=== PATIENT | female | born 1960 | race Two or more races ===

== ENCOUNTER 2024-07-16 19:44 | Emergency (ER) | payer MEDICAID, OTHER ==
[~2024-07-16] VITALS: Ht 154.9 cm; Wt 50.0 kg
--- NOTE | 2024-07-16 20:02 | ED.PDOC ---
HPI (NEURO) HPI Comments 64-year-old female with PMHx Seizure, HTN, HLD presents with a chief complaint of seizure acitivity. Per EMS, patient lives at a board and care facility and had a witnessed tonic clonic seizure. EMS was called and patient had an additional seizure in their presence. Per EMS, they gave 5mg Versed IM. However, patient had an additional seizure in the EMS ambulance and they gave any additional Versed 2.5mg IV. Patient is alert, but not oriented, not tracking or following simple commands. Patients baseline mentation is unknown. No other symptoms or modifying factors present at this time. Time Seen by MD: 19:49 Reviewed Notes: Medications, Allergies Information Source: Emergency Med Personnel Mode of Arrival: EMS Severity: Moderate Dizziness/Weakness Severity: Other (UNKNOWN) Headache Severity: Other (UNKNOWN) Timing: Hours Duration: Since onset Prehospital treatment: Oxygen, Treatment (VERSED IM AND IV) Seizure Quality: Tonic-clonic Seizure Location: Generalized Onset: With light exertion Circumstances: Spontaneous History of: Seizure Disorder Vital Signs Vital Signs Date Time Temp Pulse Resp B/P (MAP) Pulse Ox O2 Delivery O2 Flow Rate FiO2 07/17/24 01:12 97.9 86 13 134/63 (86) 95 97.9 07/16/24 20:20 Non-Rebreather 15 N/A Physical Exam General: Awake, no acute distress Skin: Skin in warm, dry and intact. Appropriate color for ethnicity. Nailbeds pink with no cyanosis. HEENT: The head is normocephalic and atraumatic. Conjunctivae are clear without exudates or hemorrhage. Sclera is non-icteric. Eyes deviated to right with nystagmus. . Eyelids are normal in appearance without swelling or lesions. Oral mucosa is pink and moist Neck: The neck is supple with normal range of motion. No JVD. Cardiac: Heart rate and rhythm are normal. No murmurs, gallops, or rubs are auscultated. Respiratory: No signs of respiratory distress. Lung sounds are clear in all lobes bilaterally without rales, ronchi, or wheezes. Abdominal: Abdomen is soft, non-tender without distention. Bowel sounds are present and normoactive in all four quadrants. Extremities: Upper and lower extremities are atraumatic in appearance without deformity or edema. Neurological: Patient is lethargic, does not follow commands, does respond to and localizes to pain, Babinski positive Review of Systems: Unable to obtain ROS, patient is not responding to questions, not speaking. Past Medical History PAST MEDICAL HISTORY: High Lipids, HTN, Seizures Surgical History: Unknown ZYGLO INSPECTOR History: Denies all ZYGLO INSPECTOR Hx Family History Family History: Reviewed,noncontributory to illness Social History Smoker: Non-Smoker Alcohol: Denies ETOH Use Drugs: Denies Drug Use Lives In: Home EKG EKG : Pulse Rate (adult): 92 [place]: Normal Cardiac Rhythm: NSR Block: None Hypertrophy: None ST: Normal Comments Probable Left Atrial Enlargement Was a procedure done? Was a procedure done?: No X-Ray, Labs, Meds, VS Vital Signs Date Time Temp Pulse Resp B/P (MAP) Pulse Ox O2 Delivery O2 Flow Rate FiO2 07/17/24 01:12 97.9 86 13 134/63 (86) 95 97.9 07/17/24 00:00 106 13 152/93 (112) 95 07/16/24 23:00 101 10 172/92 (118) 99 07/16/24 22:00 106 14 156/102 (120) 98 07/16/24 20:20 Non-Rebreather 15 N/A 07/16/24 20:20 97.7 90 12 160/84 (109) 100 97.7 07/16/24 20:02 92 07/16/24 19:57 98.0 94 23 156/86 (109) 98 07/16/24 19:49 92 Lab Test 07/16/24 20:22 Range/Units White Blood Count 12.4 H 4.4-10.8 10^3/uL Red Blood Count 4.12 4.0-5.20 10^6/uL Hemoglobin 14.3 12.2-16.2 g/dL Hematocrit 43.2 36.0-46.0 % Mean Corpuscular Volume 104.6 H 80.0-100.0 fL Mean Corpuscular Hemoglobin 34.7 H 28.0-32.0 pg Mean Corpuscular Hemoglobin Concent 33.1 32.0-36.0 g/dL Red Cell Distribution Width 13.4 11.8-14.3 % Platelet Count 136 L 140-450 10^3/uL Mean Platelet Volume 9.7 6.9-10.8 fL Neutrophils (%) (Auto) 88.0 H 37.0-80.0 % Lymphocytes (%) (Auto) 6.1 L 10.0-50.0 % Monocytes (%) (Auto) 5.7 0.0-12.0 % Eosinophils (%) (Auto) 0.0 0.0-7.0 % Basophils (%) (Auto) 0.2 0.0-2.0 % Neutrophils # (Auto) 10.9 H 1.6-8.6 10 ^3/uL Lymphocytes # (Auto) 0.8 0.4-5.4 10 ^3/uL Monocytes # (Auto) 0.7 0-1.3 10 ^3/uL Eosinophils # (Auto) 0 0-0.8 10 ^3/uL Basophils # (Auto) 0 0-0.2 10 ^3/uL Nucleated Red Blood Cells 0.2 % Sodium Level 137 136-145 mmol/L Potassium Level 3.4 L 3.5-5.1 mmol/L Chloride Level 101 98-107 mmol/L Carbon Dioxide Level 18 L 20-31 mmol/L Anion Gap 18 H 5-15 Blood Urea Nitrogen 8 L 9-23 mg/dL Creatinine 0.90 0.550-1.02 mg/dL Glomerular Filtration Rate Calc 72 >90 mL/min BUN/Creatinine Ratio 8.9 L 10.0-20.0 Serum Glucose 125 H 74-106 mg/dL Calcium Level 10.2 8.7-10.4 mg/dL Total Bilirubin 0.4 0.2-1.0 mg/dL Aspartate Amino Transferase (AST) 31 13-40 U/L Alanine Aminotransferase (ALT) 26 7-40 U/L Alkaline Phosphatase 85 46-116 U/L Troponin I High Sensitivity 17 </=34 ng/L Total Protein 7.7 5.7-8.2 g/dL Albumin 4.8 3.2-4.8 g/dL Phenytoin (Dilantin) Level < 2.0 L 10-20 ug/mL Levetiracetam Level Pending Current Medications Medications (Trade) Dose Ordered Sig/Jesu Route Start Time Stop Time Status Last Admin Sodium Chloride 1,000 ml @ 1,000 mls/hr Q1H ONCE IV 07/16/24 20:00 07/16/24 20:59 DC 07/16/24 20:52 Levetiracetam 100 ml @ 400 mls/hr ONCE ONCE IV 07/16/24 20:00 07/16/24 20:14 DC 07/16/24 20:25 Lorazepam (Ativan Inj) 2 mg ONCE ONCE IV 07/16/24 20:00 07/16/24 20:01 DC 07/16/24 20:25 Potassium Chloride 100 ml @ 50 mls/hr ONCE ONCE IV 07/16/24 22:00 07/16/24 23:59 DC 07/16/24 22:16 Levetiracetam 100 ml @ 400 mls/hr ONCE ONCE IV 07/16/24 22:30 07/16/24 22:44 DC 07/16/24 22:50 Levetiracetam 100 ml @ 400 mls/hr ONCE ONCE IV 07/16/24 22:30 07/16/24 22:44 DC 07/17/24 00:08 Time of 1ST Reevaluation: 20:19 Reevaluation 1ST: Unchanged Patient Education/Counseling: Diagnosis, Treatment, Prognosis Family Education/Counseling: No Family Present Medical Screening: No EMC Exist At This Time Departure 1 Departure Time of Disposition: 22:01 Impression: Primary Impression: Recurrent seizures Additional Impression: Hypokalemia Disposition: 02 SHORT TERM HOSPITAL Condition: Stable Comments 64-year-old female with recurrent seizures today. Three witnessed seizures prior to arrival. One seizure in the emergency department. Patient received Keppra, Ativan in the ED. CT head negative for acute process including ischemia. Patient admitted for further treatment, evaluation and monitoring, neurology consultation. Number & Complexity of Problems Addressed Acute or chronic illness that poses a threat to life or bodily function: Seizure disorder, Status epilepticus, hypokalemia Extensive evaluation was performed to identify or rule out: Acute CVA, status epilepticus, electrolyte disorder, drug intoxication, urinary tract infection, other Amount and/or Complexity of Data to be Reviewed/Analyzed Tests reviewed: See labs Documents reviewed: No previous records available for review Independent historian: EMS Independent interpretation of tests: EKG, CT head without contrast: Intracranial hemorrhage, no acute stroke Discussion of management or test interpretation with external physician/other qualified health rn acute care: Discussed with Dr. Smith, neurology at 10:20 p.m., recommendation is in additional 2 g of Keppra for a total of 60 milligram/kilogram loading dose, additional 3 mg of Ativan for total loading dose of 0.1 milligram/kilogram, transfer for continuous EEG. Discussed with Dr. Hunter at [facility] at 10/05/2041 who accepts patient for ED to ED transfer. Risk of Complications and/or Morbidity or Mortality of Patient Management Patient was at high risk of morbidity from additional diagnostic testing or treatment Decision regarding hospitalization or escalation of hospital level of care Parenteral controlled substances: IV lorazepam Critical Care Note Critical Care Time?: No Stability Stability form required: No I personally scribed for NOMI MOLINA MD ([email or web address]) on 07/16/24 at 20:02. Electronically submitted by Albino Leon ([email or web address]). NOMI MOLINA MD Jul 16, 2024 20:02
[2024-07-16] MEDS: LORazepam 2MG/ML-1ML VIAL ONE (20:09)
[2024-07-16] MEDS: LORazepam 2MG/ML-1ML VIAL IV ONE (20:25)
[2024-07-16] MEDS: levETIRAcetam 1000 mg/100ml 100 ML IV ONE ×2 (20:25→22:50)
[2024-07-16 20:35] LABS: Basophils # (auto) 0 10 ^3/uL (0-0.2); Basophils % (auto) 0.2 % (0.0-2.0); Eosinophils # (auto) 0 10 ^3/uL (0-0.8); Mean Corpuscular Hemoglobin 34.7 pg (28.0-32.0); Monocytes # (auto) 0.7 10 ^3/uL (0-1.3)
[2024-07-16 20:36] LABS: Hematocrit 43.2 % (36.0-46.0); Hemoglobin 14.3 g/dL (12.2-16.2); Lymphocytes # (auto) 0.8 10 ^3/uL (0.4-5.4); Lymphocytes % (auto) 6.1 % (10.0-50.0); Mean Corpuscular Hgb Conc. 33.1 g/dL (32.0-36.0); Mean Corpuscular Volume 104.6 fL (80.0-100.0); Monocytes % (auto) 5.7 % (0.0-12.0); Neutrophils # (auto) 10.9 10 ^3/uL (1.6-8.6); Nucleated Red Blood Cells % 0.2 %; Platelet Count (auto) 136 10^3/uL (140-450); Red Blood Cells 4.12 10^6/uL (4.0-5.20); Red Cell Distribution Width 13.4 % (11.8-14.3); White Blood Cell 12.4 10^3/uL (4.4-10.8)
[2024-07-16] MEDS: SODIUM CHLORIDE 0.9% 1,000 ML IV ONE (20:52)
[2024-07-16] MEDS ORDERED: LORazepam 2MG/ML-1ML VIAL IV PRN (21:00)
--- NOTE | 2024-07-16 21:15 | DVH ---
EXAM: CT HEAD WITHOUT CONTRAST INDICATION: seizure TECHNIQUE: CT of the head without intravenous contrast. Radiation Dose Information: CT Dose: CTDI volume is 50.06 mGy. Dose-length product is 802.63 mGy*cm The dose indicators for CT are the volume Computed Tomography (CT) Dose Index (CTDIvol) and the Dose Length Product (DLP), and are measured in units of mGy and mGy-cm, respectively. These indicators are not patient dose, but values generated from the CT scanner acquisition factors. The report includes radiation exposure data for exposures received during this examination. COMPARISON: None FINDINGS: There is no evidence of acute intracranial hemorrhage, extra-axial collection, mass effect, midline s hift, herniation or hydrocephalus. The ventricles, sulci and cisterns are age appropriate. The fleming-white differentiation is intact. Patchy periventricular and subcortical white matter hypoattenuation is nonspecific but may be related to small vessel ischemic disease. The visualized paranasal sinuses and mastoid air cells are clear. The surrounding soft tissues and osseous structures are unremarkable. IMPRESSION: 1. No acute intracranial hemorrhage. 2. No CT findings of territorial ischemia. 3. No intracranial masses.
[2024-07-16 21:18] LABS: Alanine Aminotransferase 26 U/L (7-40); Alkaline Phosphatase 85 U/L (46-116); Anion Gap 18 (5-15); Aspartate Aminotransferase 31 U/L (13-40); BUN/Creatinine Ratio 8.9 (10.0-20.0); Calcium 10.2 mg/dL (8.7-10.4); Chloride 101 mmol/L (98-107); Sodium 137 mmol/L (136-145)
[2024-07-16 21:19] LABS: Bilirubin, Total 0.4 mg/dL (0.2-1.0); Total Protein 7.7 g/dL (5.7-8.2)
[2024-07-16 21:20] LABS: Potassium 3.4 mmol/L (3.5-5.1)
[2024-07-16 21:21] LABS: Albumin 4.8 g/dL (3.2-4.8); Blood Urea Nitrogen 8 mg/dL (9-23); Carbon Dioxide 18 mmol/L (20-31); Glucose 125 mg/dL (74-106)
[2024-07-16] MEDS: POTASSIUM CHL 20MEQ/100ML 100 ML IV ONE (22:16)
--- NOTE | 2024-07-16 22:23 | BSKYNEURO ---
[facility] Note # Demographics Consult Type: General Neurology Patient Location: Emergency Room First Name: Shanna Last Name: Valerie Date of : 1960 Age: 64 Gender: Male Facility: [facility] Time of Initial Page ( Time): 07/16/2024, 22:13 Time of Return Call ( Time): 07/16/2024, 22:14 Phone Only Consult: 64F with seizures on levetiracetam and phenytoin presents after 3 seizures, not returned to baseline. Has eyes deviated to right; 4th seizure in the ED with GTC. Received 1g levetiracetam and 2mg lorazepam. Phone Agreement: - phone consult deemed mutually sufficient for patient care # Data Head CT: - no bleed - per radiologist read # Assessment Impression: Status epilepticus # Plan Medication: 3mg lorazepam for total 0.1 mg/kg dose 2g levetiracetam for total 60 mg/kg dose Other: - If patient has any neurological deterioration please call me back immediately - I have discussed my recommendations with the referring provider Additional Recommendations: Needs continuous video EEG monitoring Close consideration for intubation if not waking appropriately after lorazepam/l evetiracetam loading doses, or if further seizures occur despite those medications. If intubated, please place on midazolam or propofol continuous infusion until placed on video EEG Disposition: transfer to ICU # Logistics Attestation of consult completion: The patient is located at: [facility]. Facility staff participated in the visit. I performed this telemedicine visit from my offsite office utilizing interactive 2 way audio and visual telecommunication technology. Total time spent in telemedicine encounter: I spent 5 minutes reviewing clinical data and/or imaging, obtaining history, examining the patient, communicating with the onsite care team, and in preparation of this report. Electronically signed at 07/16/2024 22:22 ( Time) by Tolu Yoder MD Yes TOLU YODER MD Jul 16, 2024 22:23
[2024-07-16] MEDS ORDERED: LORazepam 2MG/ML-1ML VIAL IV ONE (22:30)
[2024-07-17] MEDS: levETIRAcetam 1000 mg/100ml 100 ML IV ONE (00:08)
[2024-07-17 01:12] VITALS: BP 134/63; PULSE 86; RESP 13; TEMP 97.9; O2SAT 95
--- NOTE | 2024-07-17 09:53 | ECG ---
[facility] Test Date: 2024-07-16 Test Time: 19:49:20 Pat Name: LEVI DUQUE Department: ED Room: Gender: F Fiscal Accounting Clerk: NIKKO : 1960 Requested By: NOMI MOLINA Order Number: [id number] Reading MD: Doni Abel Measurements Intervals [place] Rate: 92 P: 68 OR: 134 QRS: 56 QRSD: 77 T: 53 QT: 379 QTc: 469 Interpretive Statements Sinus rhythm Probable left atrial enlargement Electronically Signed On 07-19-2024 16:12:24 PST by Doni Abel Please click the below link to view image of tracing.
== END 2024-07-17 01:26 | disposition short-term general hospital (02) ==
LOC: EDBD 19:44 → ER 19:48
DX: G40.909 Epilepsy, unspecified, not intractable, without status epilepticus (principal); E87.6 Hypokalemia; E78.5 Hyperlipidemia, unspecified; I10 Essential (primary) hypertension
CPT/HCPCS: 36415; 70450; 80053; 80185; 82542; 84484; 85025; 93005; 96365; 96366; 96367; 96368; 96375; 99285; J1953; J2060; J3480; J7030